=== PATIENT | female | born 1965 | race Caucasian/White ===

== ENCOUNTER → 2017-11-26 14:30 | Outpatient (CLI) | payer BC ==
[2016-08-11 12:08] VITALS: BMI 27.8
[~2017-11-26 14:30] MED LIST: HYDROCODONE-APA1 TAB PO; MOTRIN800 MG PO; SAVELLA50 MG PO; SOMA350 MG PO
== END | disposition home or self-care (01) ==
LOC: D.MAMMO
DX: Z12.31 Encounter for screening mammogram for malignant neoplasm of breast (principal)

== ENCOUNTER → 2017-12-14 17:08 | Outpatient (CLI) | payer BC ==
[2016-08-11 12:08] VITALS: BMI 27.8
== END | disposition home or self-care (01) ==
LOC: D.US 17:08
DX: M79.605 Pain in left leg (principal)

== ENCOUNTER → 2018-09-01 09:55 | Outpatient (CLI) | payer BC ==
[2016-08-11 12:08] VITALS: BMI 27.8
== END | disposition home or self-care (01) ==
LOC: D.MRI 09:55
DX: M54.12 Radiculopathy, cervical region (principal); M54.14 Radiculopathy, thoracic region

== ENCOUNTER → 2018-12-29 08:00 | Outpatient (CLI) | payer BC ==
[2016-08-11 12:08] VITALS: BMI 27.8
== END | disposition home or self-care (01) ==
LOC: D.MAMMO 08:00
PROVIDERS: ATTEND Nurse Practitioner Family
DX: Z12.31 Encounter for screening mammogram for malignant neoplasm of breast (principal)